=== PATIENT | female | born 1945 | race Two or more races ===

== ENCOUNTER 2018-06-03 11:28 | Outpatient (CLI) | payer OTHER | END 2018-06-03 11:43 | disposition home or self-care (01) | LOC: LAB 11:28 | DX: M81.8 Other osteoporosis without current pathological fracture (principal); E21.3 Hyperparathyroidism, unspecified; D64.89 Other specified anemias; M06.4 Inflammatory polyarthropathy; E55.9 Vitamin D deficiency, unspecified; M85.9 Disorder of bone density and structure, unspecified; E56.1 Deficiency of vitamin K; E83.42 Hypomagnesemia ==

== ENCOUNTER → 2018-06-03 | Outpatient (CLI) | payer OTHER ==
[~2018-06-03] MED LIST: SEROPHENE50 MG; SIMVASTATIN10 MG; SYNTHROID50 MCG; XANAX0.25 MG
== END | disposition home or self-care (01) ==
LOC: MRI 11:09
DX: M25.572 Pain in left ankle and joints of left foot (principal)
CPT/HCPCS: 73721

== ENCOUNTER 2018-06-17 08:03 | Outpatient (CLI) | payer OTHER | END 2018-06-17 08:11 | disposition home or self-care (01) | LOC: LAB 08:03 | DX: D64.89 Other specified anemias (principal); M06.4 Inflammatory polyarthropathy ==

== ENCOUNTER 2018-09-02 11:28 | Outpatient (CLI) | payer OTHER | END 2018-09-02 11:36 | disposition home or self-care (01) | LOC: LAB 11:28 | DX: E55.9 Vitamin D deficiency, unspecified (principal); M81.8 Other osteoporosis without current pathological fracture; E83.42 Hypomagnesemia; E56.1 Deficiency of vitamin K; E21.2 Other hyperparathyroidism; M85.88 Other specified disorders of bone density and structure, other site ==

== ENCOUNTER 2020-09-10 12:24 | Emergency (ER) | payer OTHER ==
[~2020-09-10] VITALS: Ht 170.2 cm; Wt 59.4 kg
[2020-09-10] MEDS ORDERED: SEROQUEL50 MG (12:37)
[2020-09-10] MEDS ORDERED: DUI500 PO (14:27)
== END 2020-09-10 14:31 | disposition home or self-care (01) ==
LOC: ER 12:24
DX: R50.9 Fever, unspecified (principal); D72.821 Monocytosis (symptomatic); Z03.818 Encounter for observation for suspected exposure to other biological agents ruled out; R53.81 Other malaise

== ENCOUNTER 2020-09-13 13:28 | Inpatient (IN) | payer OTHER ==
[~2020-09-13] VITALS: Ht 182.9 cm; Wt 5.0 kg
[~2020-09-13 13:28] MED LIST changes: +DUI500 PO; +SEROQUEL50 MG
[2020-09-25] MEDS ORDERED: INTESTINEX680 M1 PO (11:26)
[2020-09-25] MEDS ORDERED: SIMVASTATIN10 MG PO (11:26)
[2020-09-25] MEDS ORDERED: LEVOTHYROXINE50 MCG PO (11:27)
== END 2020-09-25 16:51 | disposition home or self-care (01) | DRG 194 ==
LOC: ER 13:28 → SEC-K 09-14 13:33 → SURH 09-14 13:33
PROVIDERS: ADMIT Internal Medicine; ATTEND Internal Medicine
PROC: 4A033R1 Measurement of Arterial Saturation, Peripheral, Percutaneous Approach (ICD-10-PCS; principal; 2020-09-14)
PROC: CB2YYZZ Tomographic (Tomo) Nuclear Medicine Imaging of Respiratory System using Other Radionuclide (ICD-10-PCS; 2020-09-23)
DX: J18.9 Pneumonia, unspecified organism (principal); N39.0 Urinary tract infection, site not specified; E03.9 Hypothyroidism, unspecified; Z20.828 Contact with and (suspected) exposure to other viral communicable diseases; F41.8 Other specified anxiety disorders; B96.29 Other Escherichia coli [E. coli] as the cause of diseases classified elsewhere

== ENCOUNTER 2021-08-21 08:29 | Outpatient (CLI) | payer OTHER ==
[~2021-08-21 08:29] MED LIST changes: +INTESTINEX680 M1 PO; +LEVOTHYROXINE50 MCG PO; +SIMVASTATIN10 MG PO
== END 2021-08-21 08:37 | disposition home or self-care (01) ==
LOC: SONOGRAMA 08:29
PROVIDERS: ATTEND Internal Medicine Endocrinology, Diabetes & Metabolism
DX: R10.84 Generalized abdominal pain (principal)

== ENCOUNTER 2023-02-26 10:10 | Outpatient (CLI) | payer OTHER | END 2023-02-26 10:16 | disposition home or self-care (01) | LOC: TOM 10:10 | PROVIDERS: ATTEND Internal Medicine Nephrology | DX: K40.91 Unilateral inguinal hernia, without obstruction or gangrene, recurrent (principal) ==

== ENCOUNTER 2023-03-06 08:52 | Outpatient (CLI) | payer OTHER | END 2023-03-06 08:56 | disposition home or self-care (01) | LOC: LAB 08:52 | PROVIDERS: ATTEND Radiology Diagnostic Radiology | DX: C85.85 Other specified types of non-Hodgkin lymphoma, lymph nodes of inguinal region and lower limb (principal) ==

== ENCOUNTER 2023-03-07 08:29 | Outpatient (CLI) | payer OTHER | END 2023-03-07 08:37 | disposition home or self-care (01) | LOC: TOM 08:29 | DX: C85.85 Other specified types of non-Hodgkin lymphoma, lymph nodes of inguinal region and lower limb (principal); R63.4 Abnormal weight loss | CPT/HCPCS: 74177; Q9965 ==